=== PATIENT | female | born 1975 | race Caucasian/White ===

== ENCOUNTER 2019-08-08 21:22 | Emergency (ER) | payer OTHER ==
[~2019-08-08] VITALS: Ht 160 cm; Wt 93.0 kg
[2019-08-08 22:52] VITALS: BP 158/95
--- NOTE | 2019-08-08 22:53 | NUR ---
BIBSELF C/O CONSTANT L EAR TINNITUS. +PAIN. Pt DEAF IN R EAR. No acute distress noted. VSS.
== END 2019-08-08 23:14 | disposition home or self-care (01) ==
LOC: ER 21:26
DX: H66.92 Otitis media, unspecified, left ear (principal)